=== PATIENT | male | born 1940 | race Caucasian/White ===

== ENCOUNTER 2021-12-25 11:27 | Inpatient (IN) ==
[2021-12-25] MEDS ORDERED: Morphine Sulfate ER (12 HR) 30 MG TABLET.ER PO PRN (16:28)
[2021-12-25] MEDS ORDERED: Dextrose Gel 15 GM/37.5 ML TUBE PO PRN ×2 (16:36)
[2021-12-25] MEDS ORDERED: D5% in Water 1,000 ML IVC PRN (16:36)
[2021-12-25] MEDS ORDERED: *HR* Dextrose 50 % in Water (Syg) 50 ML SYRINGE IVP PRN (16:36)
[2021-12-25] MEDS ORDERED: Ondansetron ODT 4 MG TAB.RAPDIS SL PRN (16:38)
[2021-12-25] MEDS ORDERED: DAPTOmycin 500 MG VIAL IVPB SCH (17:00)
[2021-12-25] MEDS: carvediloL 25 MG TABLET PO SCH (17:39)
[2021-12-25] MEDS: Nystatin Cream 15 GM TUBE TP SCH (21:37)
[2021-12-25] MEDS: Gabapentin 300 MG CAPSULE PO SCH (21:37)
[2021-12-25] MEDS: traZODone 50 MG TABLET PO SCH (21:37)
[2021-12-25] MEDS: Insulin LISPRO 300 UNITS/3 ML VIAL SUBQ SCH (21:38)
[2021-12-25] MEDS: DAPTOmycin 650 MG in 0.9 % Sodium Chloride 100 ML IVPB SCH (21:39)
[2021-12-26] MEDS: hydrALAZINE 25 MG TABLET PO SCH ×4 (00:05→22:27)
[2021-12-26 07:31] LABS: Basophils % 0.2 %; Calcium 8.4 mg/dL (8.6-10.3); Eosinophils % 0.6 %; Hematocrit 36.7 % (37.5-50.1); Hemoglobin 11.8 g/dL (12.9-16.9); Immature Granulocytes % 0.9 % (0-4); Lymphocytes # 0.9 K/mcL (0.6-4.6); Lymphocytes % 17.7 %; Mean Corpuscular HGB Conc 32.2 g/dL (31.6-35.5); Mean Corpuscular Hemoglobin 30.9 pg (28.0-33.3); Mean Corpuscular Volume 96.1 fL (83.0-100.0); Monocytes # 0.5 K/mcL (0.0-1.3); Monocytes % 8.5 %; Neutrophils # 3.8 K/mcL (1.6-8.9); Platelet Count 172 K/mcL (140-400); Potassium 3.9 mEq/L (3.5-5.1); Red Blood Count 3.82 M/mcL (4.19-5.50); Red Cell Distribution Width 13.3 % (11.5-14.5); Segmented Neutrophils % 72.1 %; White Blood Count 5.3 K/mcL (4.3-11.1)
[2021-12-26] MEDS ORDERED: Tiotropium 10 INH DOSE IH ONE (08:29)
[2021-12-26] MEDS: Tiotropium 10 INH DOSE IH SCH (08:40)
[2021-12-26] MEDS: Nystatin Cream 15 GM TUBE TP SCH ×2 (10:05→22:28)
[2021-12-26] MEDS: Fluticasone Propionate Nasal 50 MCG/SPRAY BOTTLE NS SCH (10:05)
[2021-12-26] MEDS: Insulin LISPRO 300 UNITS/3 ML VIAL SUBQ SCH ×4 (10:46→22:27)
[2021-12-26] MEDS: amLODIPine 5 MG TABLET PO SCH (10:49)
[2021-12-26] MEDS: lisinopriL 20 MG TABLET PO SCH (10:49)
[2021-12-26] MEDS: Cholecalciferol (D-3) 1,000 UNIT (25MCG) TABLET PO SCH (10:50)
[2021-12-26] MEDS: Loratadine 10 MG TABLET PO SCH (10:50)
[2021-12-26] MEDS: calcitrioL 0.25 MCG CAPSULE PO SCH (10:50)
[2021-12-26] MEDS: Gabapentin 300 MG CAPSULE PO SCH ×3 (10:50→22:27)
[2021-12-26] MEDS: Ertapenem 1,000 MG in 0.9 % Sodium Chloride Mini Bag 100 ML IVPB SCH (10:52)
[2021-12-26] MEDS: carvediloL 25 MG TABLET PO SCH ×2 (10:55→17:54)
[2021-12-26] MEDS: DAPTOmycin 650 MG in 0.9 % Sodium Chloride 100 ML IVPB SCH (22:26)
[2021-12-26] MEDS: traZODone 50 MG TABLET PO SCH (22:27)
[2021-12-27] MEDS: Insulin LISPRO 300 UNITS/3 ML VIAL SUBQ SCH ×4 (09:08→23:23)
[2021-12-27] MEDS: Cholecalciferol (D-3) 1,000 UNIT (25MCG) TABLET PO SCH (09:20)
[2021-12-27] MEDS: Loratadine 10 MG TABLET PO SCH (09:20)
[2021-12-27] MEDS: Ertapenem 1,000 MG in 0.9 % Sodium Chloride Mini Bag 100 ML IVPB SCH (09:20)
[2021-12-27] MEDS: carvediloL 25 MG TABLET PO SCH ×2 (09:20→16:58)
[2021-12-27] MEDS: Gabapentin 300 MG CAPSULE PO SCH ×3 (09:20→23:22)
[2021-12-27] MEDS: calcitrioL 0.25 MCG CAPSULE PO SCH (09:20)
[2021-12-27] MEDS: amLODIPine 5 MG TABLET PO SCH (09:20)
[2021-12-27] MEDS: lisinopriL 20 MG TABLET PO SCH (09:20)
[2021-12-27] MEDS: Tiotropium 10 INH DOSE IH SCH (09:49)
[2021-12-27 09:54] LABS: Adenovirus Not Detected (Not Detect); Bordetella Pertussis Not Detected (Not Detect); Chlamydophila pneumoniae Not Detected (Not Detect); Coronavirus 229E Not Detected (Not Detect); Coronavirus HKU1 Not Detected (Not Detect); Coronavirus NL63 Not Detected (Not Detect); Coronavirus OC43 Not Detected (Not Detect); Human Metapneumovirus Not Detected (Not Detect); Human Rhinovirus/Enterovirus Not Detected (Not Detect); Influenza A Subtype 2009 H1 Not Detected (Not Detect); Influenza B Not Detected (Not Detect); Mycoplasma pneumoniae Not Detected (Not Detect); Parainfluenza Virus 1 Not Detected (Not Detect); Parainfluenza Virus 2 Not Detected (Not Detect); Parainfluenza Virus 3 Not Detected (Not Detect); Parainfluenza Virus 4 Not Detected (Not Detect); Respiratory Syncytial Virus Not Detected (Not Detect)
[2021-12-27 09:56] LABS: SARS-CoV-2 DETECTED (Not Detect)
[2021-12-27 10:24] LABS: Basophils % 0.2 %; Eosinophils % 0.4 %; Hematocrit 36.2 % (37.5-50.1); Hemoglobin 11.7 g/dL (12.9-16.9); Lymphocytes % 19.2 %; Mean Corpuscular HGB Conc 32.3 g/dL (31.6-35.5); Mean Corpuscular Hemoglobin 31.2 pg (28.0-33.3); Mean Corpuscular Volume 96.5 fL (83.0-100.0); Mean Platelet Volume 9.7 fL (9.4-12.4); Monocytes # 0.5 K/mcL (0.0-1.3); Monocytes % 10.7 %; Neutrophils # 3.5 K/mcL (1.6-8.9); Platelet Count 158 K/mcL (140-400); Red Blood Count 3.75 M/mcL (4.19-5.50); Red Cell Distribution Width 13.5 % (11.5-14.5); Segmented Neutrophils % 68.5 %
[2021-12-27 10:42] LABS: Calcium 8.4 mg/dL (8.6-10.3); Potassium 4.1 mEq/L (3.5-5.1)
[2021-12-27] MEDS: hydrALAZINE 25 MG TABLET PO SCH ×3 (11:24→23:22)
[2021-12-27] MEDS: Fluticasone Propionate Nasal 50 MCG/SPRAY BOTTLE NS SCH (11:26)
[2021-12-27] MEDS: Nystatin Cream 15 GM TUBE TP SCH ×2 (11:27→23:28)
[2021-12-27] MEDS: Benzonatate 100 MG CAPSULE PO PRN (23:22)
[2021-12-27] MEDS: traZODone 50 MG TABLET PO SCH (23:22)
[2021-12-27] MEDS: DAPTOmycin 650 MG in 0.9 % Sodium Chloride 100 ML IVPB SCH (23:24)
[2021-12-28] MEDS: Loratadine 10 MG TABLET PO SCH (08:44)
[2021-12-28] MEDS: Gabapentin 300 MG CAPSULE PO SCH ×3 (08:44→20:15)
[2021-12-28] MEDS: lisinopriL 20 MG TABLET PO SCH (08:45)
[2021-12-28] MEDS: calcitrioL 0.25 MCG CAPSULE PO SCH (08:45)
[2021-12-28] MEDS: amLODIPine 5 MG TABLET PO SCH (08:45)
[2021-12-28] MEDS: carvediloL 25 MG TABLET PO SCH ×2 (08:46→17:24)
[2021-12-28] MEDS: Cholecalciferol (D-3) 1,000 UNIT (25MCG) TABLET PO SCH (08:46)
[2021-12-28] MEDS: hydrALAZINE 25 MG TABLET PO SCH ×3 (08:47→23:05)
[2021-12-28] MEDS: Acetaminophen 325 MG TABLET PO PRN ×2 (08:48→20:15)
[2021-12-28] MEDS: Ertapenem 1,000 MG in 0.9 % Sodium Chloride Mini Bag 100 ML IVPB SCH (08:48)
[2021-12-28] MEDS: Tiotropium 10 INH DOSE IH SCH (09:17)
[2021-12-28] MEDS: Insulin LISPRO 300 UNITS/3 ML VIAL SUBQ SCH ×4 (10:46→20:23)
[2021-12-28] MEDS: Furosemide 20 MG TABLET PO SCH (10:58)
[2021-12-28] MEDS: Fluticasone Propionate Nasal 50 MCG/SPRAY BOTTLE NS SCH (10:59)
[2021-12-28] MEDS: Nystatin Cream 15 GM TUBE TP SCH ×2 (15:06→20:17)
[2021-12-28] MEDS: *HR* HYDROcodone/Acet 5/325 mg TABLET PO PRN (17:30)
[2021-12-28] MEDS: Benzonatate 100 MG CAPSULE PO PRN (20:16)
[2021-12-28] MEDS: traZODone 50 MG TABLET PO SCH (20:17)
[2021-12-28] MEDS: DAPTOmycin 650 MG in 0.9 % Sodium Chloride 100 ML IVPB SCH (20:18)
[2021-12-28] MEDS: *HR* Heparin 5,000 UNIT/ML VIAL SQ SCH (23:04)
[2021-12-29] MEDS: *HR* Heparin 5,000 UNIT/ML VIAL SQ SCH ×3 (05:35→23:23)
[2021-12-29] MEDS: Insulin LISPRO 300 UNITS/3 ML VIAL SUBQ SCH ×4 (07:31→20:52)
[2021-12-29] MEDS: calcitrioL 0.25 MCG CAPSULE PO SCH (08:12)
[2021-12-29] MEDS: Gabapentin 300 MG CAPSULE PO SCH ×3 (08:12→20:51)
[2021-12-29] MEDS: Cholecalciferol (D-3) 1,000 UNIT (25MCG) TABLET PO SCH (08:13)
[2021-12-29] MEDS: Loratadine 10 MG TABLET PO SCH (08:13)
[2021-12-29] MEDS: carvediloL 25 MG TABLET PO SCH ×2 (08:13→17:00)
[2021-12-29] MEDS: lisinopriL 20 MG TABLET PO SCH (08:13)
[2021-12-29] MEDS: amLODIPine 5 MG TABLET PO SCH (08:13)
[2021-12-29] MEDS: hydrALAZINE 25 MG TABLET PO SCH ×3 (08:13→23:23)
[2021-12-29] MEDS: Nystatin Cream 15 GM TUBE TP SCH ×2 (08:14→23:24)
[2021-12-29] MEDS: Acetaminophen 325 MG TABLET PO PRN ×2 (08:14→20:50)
[2021-12-29] MEDS: Fluticasone Propionate Nasal 50 MCG/SPRAY BOTTLE NS SCH (08:15)
[2021-12-29] MEDS: Ertapenem 1,000 MG in 0.9 % Sodium Chloride Mini Bag 100 ML IVPB SCH (08:15)
[2021-12-29] MEDS: Tiotropium 10 INH DOSE IH SCH (09:30)
[2021-12-29 12:14] LABS: ABG Base Excess -2 mEq/L (-2 to 3); ABG HCO3 23 mEq/L (21-27); ABG Oxygen Saturation 81 % (95-98); ABG PCO2 39 mmHg (35-45); ABG PH 7.38 pH Units (7.32-7.45); ABG PO2 46 mmHg (85-104); ABG TCO2 24 mEq/L (20-26)
[2021-12-29] MEDS: Gentamicin Oint 15 GM TUBE TP SCH (16:46)
[2021-12-29] MEDS: DAPTOmycin 650 MG in 0.9 % Sodium Chloride 100 ML IVPB SCH (20:48)
[2021-12-29] MEDS: Benzonatate 100 MG CAPSULE PO PRN (20:52)
[2021-12-29] MEDS: traZODone 50 MG TABLET PO SCH (20:52)
[2021-12-30] MEDS: *HR* Heparin 5,000 UNIT/ML VIAL SQ SCH ×3 (05:49→22:29)
[2021-12-30] MEDS: Acetaminophen 325 MG TABLET PO PRN ×2 (05:50→20:54)
[2021-12-30] MEDS: Insulin LISPRO 300 UNITS/3 ML VIAL SUBQ SCH ×4 (07:26→20:55)
[2021-12-30] MEDS: hydrALAZINE 25 MG TABLET PO SCH ×3 (07:41→22:28)
[2021-12-30] MEDS: carvediloL 25 MG TABLET PO SCH ×2 (07:41→16:01)
[2021-12-30] MEDS: Tiotropium 10 INH DOSE IH SCH (09:10)
[2021-12-30] MEDS: Cholecalciferol (D-3) 1,000 UNIT (25MCG) TABLET PO SCH (09:12)
[2021-12-30] MEDS: amLODIPine 5 MG TABLET PO SCH (09:13)
[2021-12-30] MEDS: Gabapentin 300 MG CAPSULE PO SCH ×3 (09:13→20:53)
[2021-12-30] MEDS: calcitrioL 0.25 MCG CAPSULE PO SCH (09:13)
[2021-12-30] MEDS: Loratadine 10 MG TABLET PO SCH (09:13)
[2021-12-30] MEDS: Fluticasone Propionate Nasal 50 MCG/SPRAY BOTTLE NS SCH (09:13)
[2021-12-30] MEDS: Nystatin Cream 15 GM TUBE TP SCH ×2 (09:14→20:55)
[2021-12-30] MEDS: Ertapenem 1,000 MG in 0.9 % Sodium Chloride Mini Bag 100 ML IVPB SCH (09:14)
[2021-12-30] MEDS: Gentamicin Oint 15 GM TUBE TP SCH (12:12)
[2021-12-30] MEDS: Furosemide 20 MG TABLET PO SCH (12:13)
[2021-12-30] MEDS: lisinopriL 20 MG TABLET PO SCH (12:13)
[2021-12-30] MEDS: dexAMETHasone 4 MG TABLET PO SCH (12:13)
[2021-12-30] MEDS ORDERED: Lactobacillus 1 EACH CAP.SPRINK PO SCH (14:15)
[2021-12-30] MEDS: *HR* HYDROcodone/Acet 5/325 mg TABLET PO PRN (16:02)
[2021-12-30] MEDS: Lactobacillus 1 EACH CAP.SPRINK PO SCH ×2 (16:48→20:54)
[2021-12-30] MEDS: DAPTOmycin 650 MG in 0.9 % Sodium Chloride 100 ML IVPB SCH (20:51)
[2021-12-30] MEDS: Benzonatate 100 MG CAPSULE PO PRN (20:52)
[2021-12-30] MEDS: traZODone 50 MG TABLET PO SCH (20:55)
[2021-12-31] MEDS: *HR* Heparin 5,000 UNIT/ML VIAL SQ SCH ×3 (06:12→21:16)
[2021-12-31] MEDS: Ertapenem 1,000 MG in 0.9 % Sodium Chloride Mini Bag 100 ML IVPB SCH (08:25)
[2021-12-31] MEDS: carvediloL 25 MG TABLET PO SCH ×2 (08:26→17:25)
[2021-12-31] MEDS: Lactobacillus 1 EACH CAP.SPRINK PO SCH ×2 (08:26→21:16)
[2021-12-31] MEDS: dexAMETHasone 4 MG TABLET PO SCH (08:26)
[2021-12-31] MEDS: Loratadine 10 MG TABLET PO SCH (08:26)
[2021-12-31] MEDS: hydrALAZINE 25 MG TABLET PO SCH ×2 (08:26→17:25)
[2021-12-31] MEDS: Gabapentin 300 MG CAPSULE PO SCH ×3 (08:29→21:16)
[2021-12-31] MEDS: Nystatin Cream 15 GM TUBE TP SCH ×2 (08:29→21:16)
[2021-12-31] MEDS: Fluticasone Propionate Nasal 50 MCG/SPRAY BOTTLE NS SCH (08:29)
[2021-12-31] MEDS: calcitrioL 0.25 MCG CAPSULE PO SCH (08:29)
[2021-12-31] MEDS: Cholecalciferol (D-3) 1,000 UNIT (25MCG) TABLET PO SCH (08:29)
[2021-12-31] MEDS: lisinopriL 20 MG TABLET PO SCH (08:29)
[2021-12-31] MEDS: amLODIPine 5 MG TABLET PO SCH (08:29)
[2021-12-31] MEDS: Insulin LISPRO 300 UNITS/3 ML VIAL SUBQ SCH ×4 (08:37→22:07)
[2021-12-31] MEDS: Tiotropium 10 INH DOSE IH SCH (11:28)
[2021-12-31] MEDS: Gentamicin Oint 15 GM TUBE TP SCH (12:18)
[2021-12-31] MEDS: *HR* HYDROcodone/Acet 5/325 mg TABLET PO PRN (18:44)
[2021-12-31] MEDS: DAPTOmycin 650 MG in 0.9 % Sodium Chloride 100 ML IVPB SCH (21:15)
[2021-12-31] MEDS: traZODone 50 MG TABLET PO SCH (21:16)
[2022-01-01] MEDS: hydrALAZINE 25 MG TABLET PO SCH ×4 (00:08→23:54)
[2022-01-01] MEDS: *HR* Heparin 5,000 UNIT/ML VIAL SQ SCH ×3 (05:46→21:00)
[2022-01-01] MEDS: *HR* HYDROcodone/Acet 5/325 mg TABLET PO PRN ×3 (09:51→19:11)
[2022-01-01] MEDS: amLODIPine 5 MG TABLET PO SCH (09:51)
[2022-01-01] MEDS: Furosemide 20 MG TABLET PO SCH (09:52)
[2022-01-01] MEDS: Gabapentin 300 MG CAPSULE PO SCH ×3 (09:52→19:58)
[2022-01-01] MEDS: lisinopriL 20 MG TABLET PO SCH (09:52)
[2022-01-01] MEDS: Loratadine 10 MG TABLET PO SCH (09:52)
[2022-01-01] MEDS: Lactobacillus 1 EACH CAP.SPRINK PO SCH ×2 (09:52→19:58)
[2022-01-01] MEDS: Cholecalciferol (D-3) 1,000 UNIT (25MCG) TABLET PO SCH (09:52)
[2022-01-01] MEDS: dexAMETHasone 4 MG TABLET PO SCH (09:52)
[2022-01-01] MEDS: calcitrioL 0.25 MCG CAPSULE PO SCH (09:52)
[2022-01-01] MEDS: Gentamicin Oint 15 GM TUBE TP SCH (09:53)
[2022-01-01] MEDS: Fluticasone Propionate Nasal 50 MCG/SPRAY BOTTLE NS SCH (09:53)
[2022-01-01] MEDS: Ertapenem 1,000 MG in 0.9 % Sodium Chloride Mini Bag 100 ML IVPB SCH (09:53)
[2022-01-01] MEDS: Insulin LISPRO 300 UNITS/3 ML VIAL SUBQ SCH ×3 (09:53→19:57)
[2022-01-01] MEDS: Nystatin Cream 15 GM TUBE TP SCH ×2 (09:53→19:58)
[2022-01-01] MEDS: carvediloL 25 MG TABLET PO SCH ×2 (09:53→19:11)
[2022-01-01] MEDS: Tiotropium 10 INH DOSE IH SCH (10:39)
[2022-01-01] MEDS: DAPTOmycin 650 MG in 0.9 % Sodium Chloride 100 ML IVPB SCH (19:57)
[2022-01-01] MEDS: traZODone 50 MG TABLET PO SCH (19:58)
[2022-01-02] MEDS: *HR* Heparin 5,000 UNIT/ML VIAL SQ SCH ×3 (05:40→22:31)
[2022-01-02 08:00] LABS: Basophils % 0.4 %; Eosinophils % 0.4 %; Hematocrit 32.3 % (37.5-50.1); Hemoglobin 10.8 g/dL (12.9-16.9); Immature Granulocytes % 0.6 % (0-4); Lymphocytes # 1.4 K/mcL (0.6-4.6); Lymphocytes % 25.3 %; Mean Corpuscular HGB Conc 33.4 g/dL (31.6-35.5); Mean Corpuscular Hemoglobin 30.4 pg (28.0-33.3); Mean Platelet Volume 9.6 fL (9.4-12.4); Monocytes # 0.4 K/mcL (0.0-1.3); Monocytes % 8.2 %; Neutrophils # 3.5 K/mcL (1.6-8.9); Platelet Count 238 K/mcL (140-400); Red Blood Count 3.55 M/mcL (4.19-5.50); Red Cell Distribution Width 12.5 % (11.5-14.5); Segmented Neutrophils % 65.1 %; White Blood Count 5.4 K/mcL (4.3-11.1)
[2022-01-02 08:12] LABS: Calcium 8.3 mg/dL (8.6-10.3)
[2022-01-02] MEDS: Lactobacillus 1 EACH CAP.SPRINK PO SCH ×2 (08:55→21:04)
[2022-01-02] MEDS: *HR* HYDROcodone/Acet 5/325 mg TABLET PO PRN ×2 (08:56→21:04)
[2022-01-02] MEDS: calcitrioL 0.25 MCG CAPSULE PO SCH (08:56)
[2022-01-02] MEDS: amLODIPine 5 MG TABLET PO SCH (08:56)
[2022-01-02] MEDS: Loratadine 10 MG TABLET PO SCH (08:56)
[2022-01-02] MEDS: dexAMETHasone 4 MG TABLET PO SCH (08:56)
[2022-01-02] MEDS: carvediloL 25 MG TABLET PO SCH ×2 (08:56→16:23)
[2022-01-02] MEDS: Gabapentin 300 MG CAPSULE PO SCH ×3 (08:56→21:04)
[2022-01-02] MEDS: lisinopriL 20 MG TABLET PO SCH (08:56)
[2022-01-02] MEDS: Cholecalciferol (D-3) 1,000 UNIT (25MCG) TABLET PO SCH (08:57)
[2022-01-02] MEDS: Fluticasone Propionate Nasal 50 MCG/SPRAY BOTTLE NS SCH (08:57)
[2022-01-02] MEDS: hydrALAZINE 25 MG TABLET PO SCH ×2 (08:57→16:23)
[2022-01-02] MEDS: Gentamicin Oint 15 GM TUBE TP SCH (08:58)
[2022-01-02] MEDS: Ertapenem 1,000 MG in 0.9 % Sodium Chloride Mini Bag 100 ML IVPB SCH (08:58)
[2022-01-02] MEDS: Nystatin Cream 15 GM TUBE TP SCH ×2 (08:59→21:16)
[2022-01-02] MEDS: Tiotropium 10 INH DOSE IH SCH (10:42)
[2022-01-02] MEDS: Insulin LISPRO 300 UNITS/3 ML VIAL SUBQ SCH ×3 (11:45→21:05)
[2022-01-02] MEDS: DAPTOmycin 650 MG in 0.9 % Sodium Chloride 100 ML IVPB SCH (21:03)
[2022-01-02] MEDS: traZODone 50 MG TABLET PO SCH (21:04)
[2022-01-03] MEDS: hydrALAZINE 25 MG TABLET PO SCH ×3 (00:40→14:52)
[2022-01-03] MEDS: *HR* Heparin 5,000 UNIT/ML VIAL SQ SCH ×3 (04:26→21:35)
[2022-01-03] MEDS: Loratadine 10 MG TABLET PO SCH (08:58)
[2022-01-03] MEDS: Cholecalciferol (D-3) 1,000 UNIT (25MCG) TABLET PO SCH (08:59)
[2022-01-03] MEDS: amLODIPine 5 MG TABLET PO SCH (08:59)
[2022-01-03] MEDS: calcitrioL 0.25 MCG CAPSULE PO SCH (08:59)
[2022-01-03] MEDS: *HR* HYDROcodone/Acet 5/325 mg TABLET PO PRN ×2 (08:59→14:52)
[2022-01-03] MEDS: Gabapentin 300 MG CAPSULE PO SCH ×3 (08:59→21:35)
[2022-01-03] MEDS: Lactobacillus 1 EACH CAP.SPRINK PO SCH ×2 (08:59→21:35)
[2022-01-03] MEDS: dexAMETHasone 4 MG TABLET PO SCH (08:59)
[2022-01-03] MEDS: carvediloL 25 MG TABLET PO SCH ×2 (08:59→16:55)
[2022-01-03] MEDS: lisinopriL 20 MG TABLET PO SCH (08:59)
[2022-01-03] MEDS: Nystatin Cream 15 GM TUBE TP SCH (09:00)
[2022-01-03] MEDS: Ertapenem 1,000 MG in 0.9 % Sodium Chloride Mini Bag 100 ML IVPB SCH (09:00)
[2022-01-03] MEDS: Fluticasone Propionate Nasal 50 MCG/SPRAY BOTTLE NS SCH (09:01)
[2022-01-03] MEDS: Insulin LISPRO 300 UNITS/3 ML VIAL SUBQ SCH ×4 (09:01→21:38)
[2022-01-03] MEDS: Gentamicin Oint 15 GM TUBE TP SCH (09:01)
[2022-01-03] MEDS: Tiotropium 10 INH DOSE IH SCH (09:35)
[2022-01-03] MEDS: Insulin DETEMIR 100 UNIT/ML X5UNITS SUBQ SCH ×2 (11:12→21:38)
[2022-01-03] MEDS: traZODone 50 MG TABLET PO SCH (21:35)
[2022-01-03] MEDS: DAPTOmycin 650 MG in 0.9 % Sodium Chloride 100 ML IVPB SCH (21:36)
[2022-01-04] MEDS: hydrALAZINE 25 MG TABLET PO SCH ×3 (00:07→16:24)
[2022-01-04 06:50] LABS: Hemoglobin 12.2 g/dL (12.9-16.9); Mean Corpuscular HGB Conc 33.9 g/dL (31.6-35.5); Mean Corpuscular Volume 91.6 fL (83.0-100.0); Mean Platelet Volume 9.7 fL (9.4-12.4); Platelet Count 290 K/mcL (140-400); Red Blood Count 3.93 M/mcL (4.19-5.50); Red Cell Distribution Width 12.5 % (11.5-14.5); White Blood Count 6.2 K/mcL (4.3-11.1)
[2022-01-04] MEDS: Tiotropium 10 INH DOSE IH SCH (09:21)
[2022-01-04 09:35] LABS: C-Reactive Protein 11 mg/L (Less than 10)
[2022-01-04 10:02] LABS: Blood Urea Nitrogen 42 mg/dL (8-23); Creatine Kinase 51 Units/L (30-223)
[2022-01-04] MEDS: Ertapenem 1,000 MG in 0.9 % Sodium Chloride Mini Bag 100 ML IVPB SCH (10:11)
[2022-01-04] MEDS: Nystatin Cream 15 GM TUBE TP SCH ×3 (10:11→23:12)
[2022-01-04] MEDS: Cholecalciferol (D-3) 1,000 UNIT (25MCG) TABLET PO SCH (10:12)
[2022-01-04] MEDS: Insulin DETEMIR 100 UNIT/ML X5UNITS SUBQ SCH ×2 (10:12→23:07)
[2022-01-04] MEDS: Gabapentin 300 MG CAPSULE PO SCH ×3 (10:12→22:41)
[2022-01-04] MEDS: *HR* Heparin 5,000 UNIT/ML VIAL SQ SCH ×3 (10:13→22:41)
[2022-01-04] MEDS: amLODIPine 5 MG TABLET PO SCH (10:13)
[2022-01-04] MEDS: calcitrioL 0.25 MCG CAPSULE PO SCH (10:13)
[2022-01-04] MEDS: *HR* HYDROcodone/Acet 5/325 mg TABLET PO PRN (10:13)
[2022-01-04] MEDS: carvediloL 25 MG TABLET PO SCH ×2 (10:13→16:24)
[2022-01-04] MEDS: Gentamicin Oint 15 GM TUBE TP SCH (10:14)
[2022-01-04] MEDS: Insulin LISPRO 300 UNITS/3 ML VIAL SUBQ SCH ×4 (10:14→22:42)
[2022-01-04] MEDS: Lactobacillus 1 EACH CAP.SPRINK PO SCH ×2 (10:14→22:41)
[2022-01-04] MEDS: lisinopriL 20 MG TABLET PO SCH (10:14)
[2022-01-04] MEDS: Fluticasone Propionate Nasal 50 MCG/SPRAY BOTTLE NS SCH (10:14)
[2022-01-04] MEDS: Loratadine 10 MG TABLET PO SCH (10:14)
[2022-01-04] MEDS: Furosemide 20 MG TABLET PO SCH (10:38)
[2022-01-04] MEDS: traZODone 50 MG TABLET PO SCH (22:41)
[2022-01-04] MEDS: DAPTOmycin 650 MG in 0.9 % Sodium Chloride 100 ML IVPB SCH (23:07)
[2022-01-05] MEDS: hydrALAZINE 25 MG TABLET PO SCH ×3 (00:50→17:23)
[2022-01-05] MEDS: *HR* Heparin 5,000 UNIT/ML VIAL SQ SCH ×3 (06:53→21:24)
[2022-01-05] MEDS: Gentamicin Oint 15 GM TUBE TP SCH (08:09)
[2022-01-05] MEDS: Ertapenem 1,000 MG in 0.9 % Sodium Chloride Mini Bag 100 ML IVPB SCH (08:11)
[2022-01-05] MEDS: *HR* HYDROcodone/Acet 5/325 mg TABLET PO PRN ×2 (08:12→20:46)
[2022-01-05] MEDS: carvediloL 25 MG TABLET PO SCH ×2 (08:12→17:23)
[2022-01-05] MEDS: calcitrioL 0.25 MCG CAPSULE PO SCH (08:13)
[2022-01-05] MEDS: lisinopriL 20 MG TABLET PO SCH (08:13)
[2022-01-05] MEDS: Lactobacillus 1 EACH CAP.SPRINK PO SCH ×2 (08:13→20:47)
[2022-01-05] MEDS: amLODIPine 5 MG TABLET PO SCH (08:13)
[2022-01-05] MEDS: Cholecalciferol (D-3) 1,000 UNIT (25MCG) TABLET PO SCH (08:13)
[2022-01-05] MEDS: Nystatin Cream 15 GM TUBE TP SCH ×2 (08:13→20:47)
[2022-01-05] MEDS: Loratadine 10 MG TABLET PO SCH (08:13)
[2022-01-05] MEDS: Gabapentin 300 MG CAPSULE PO SCH ×3 (08:13→20:46)
[2022-01-05] MEDS: Insulin LISPRO 300 UNITS/3 ML VIAL SUBQ SCH ×4 (08:14→20:53)
[2022-01-05] MEDS: Fluticasone Propionate Nasal 50 MCG/SPRAY BOTTLE NS SCH (08:14)
[2022-01-05] MEDS: Insulin DETEMIR 100 UNIT/ML X5UNITS SUBQ SCH ×2 (08:14→20:48)
[2022-01-05] MEDS: Tiotropium 10 INH DOSE IH SCH (10:03)
[2022-01-05 14:47] LABS: Calcium 8.2 mg/dL (8.6-10.3); Potassium 4.1 mEq/L (3.5-5.1)
[2022-01-05] MEDS: traZODone 50 MG TABLET PO SCH (20:47)
[2022-01-05] MEDS: DAPTOmycin 650 MG in 0.9 % Sodium Chloride 100 ML IVPB SCH (20:50)
[2022-01-06] MEDS: hydrALAZINE 25 MG TABLET PO SCH ×3 (00:36→17:03)
[2022-01-06] MEDS: *HR* Heparin 5,000 UNIT/ML VIAL SQ SCH ×3 (05:27→21:06)
[2022-01-06] MEDS: Tiotropium 10 INH DOSE IH SCH (07:39)
[2022-01-06] MEDS: Insulin LISPRO 300 UNITS/3 ML VIAL SUBQ SCH ×4 (08:23→21:05)
[2022-01-06] MEDS: Ertapenem 1,000 MG in 0.9 % Sodium Chloride Mini Bag 100 ML IVPB SCH (10:31)
[2022-01-06] MEDS: Insulin DETEMIR 100 UNIT/ML X5UNITS SUBQ SCH ×2 (10:37→22:10)
[2022-01-06] MEDS: Cholecalciferol (D-3) 1,000 UNIT (25MCG) TABLET PO SCH (10:37)
[2022-01-06] MEDS: Gabapentin 300 MG CAPSULE PO SCH ×3 (10:37→21:08)
[2022-01-06] MEDS: calcitrioL 0.25 MCG CAPSULE PO SCH (10:38)
[2022-01-06] MEDS: amLODIPine 5 MG TABLET PO SCH (10:38)
[2022-01-06] MEDS: Lactobacillus 1 EACH CAP.SPRINK PO SCH ×2 (10:38→21:08)
[2022-01-06] MEDS: Loratadine 10 MG TABLET PO SCH (10:38)
[2022-01-06] MEDS: Gentamicin Oint 15 GM TUBE TP SCH (10:39)
[2022-01-06] MEDS: Fluticasone Propionate Nasal 50 MCG/SPRAY BOTTLE NS SCH (10:39)
[2022-01-06] MEDS: Nystatin Cream 15 GM TUBE TP SCH ×2 (10:39→21:08)
[2022-01-06] MEDS: carvediloL 25 MG TABLET PO SCH ×2 (10:42→17:03)
[2022-01-06] MEDS: Ringers Solution, Lactated 1,000 ML IVC SCH (17:02)
[2022-01-06] MEDS: DAPTOmycin 650 MG in 0.9 % Sodium Chloride 100 ML IVPB SCH (21:04)
[2022-01-06] MEDS: traZODone 50 MG TABLET PO SCH (21:08)
[2022-01-07] MEDS: hydrALAZINE 25 MG TABLET PO SCH ×4 (00:22→23:40)
[2022-01-07] MEDS: *HR* Heparin 5,000 UNIT/ML VIAL SQ SCH ×3 (05:14→23:34)
[2022-01-07] MEDS: Ringers Solution, Lactated 1,000 ML IVC SCH (05:43)
[2022-01-07] MEDS: Insulin LISPRO 300 UNITS/3 ML VIAL SUBQ SCH ×4 (07:31→21:14)
[2022-01-07 07:37] LABS: Hematocrit 32.8 % (37.5-50.1); Hemoglobin 10.9 g/dL (12.9-16.9); Mean Corpuscular HGB Conc 33.2 g/dL (31.6-35.5); Mean Corpuscular Hemoglobin 31.1 pg (28.0-33.3); Mean Corpuscular Volume 93.4 fL (83.0-100.0); Mean Platelet Volume 9.6 fL (9.4-12.4); Platelet Count 289 K/mcL (140-400); Red Blood Count 3.51 M/mcL (4.19-5.50); Red Cell Distribution Width 12.9 % (11.5-14.5); White Blood Count 6.8 K/mcL (4.3-11.1)
[2022-01-07 08:05] LABS: Calcium 8.1 mg/dL (8.6-10.3); Potassium 4.1 mEq/L (3.5-5.1)
[2022-01-07] MEDS: carvediloL 25 MG TABLET PO SCH ×2 (08:35→16:01)
[2022-01-07] MEDS: Gabapentin 300 MG CAPSULE PO SCH ×3 (08:35→21:06)
[2022-01-07] MEDS: Lactobacillus 1 EACH CAP.SPRINK PO SCH ×2 (08:35→21:05)
[2022-01-07] MEDS: calcitrioL 0.25 MCG CAPSULE PO SCH (08:36)
[2022-01-07] MEDS: amLODIPine 5 MG TABLET PO SCH (08:36)
[2022-01-07] MEDS: Loratadine 10 MG TABLET PO SCH (08:36)
[2022-01-07] MEDS: Nystatin Cream 15 GM TUBE TP SCH ×2 (08:36→21:08)
[2022-01-07] MEDS: Cholecalciferol (D-3) 1,000 UNIT (25MCG) TABLET PO SCH (08:36)
[2022-01-07] MEDS: Ertapenem 1,000 MG in 0.9 % Sodium Chloride Mini Bag 100 ML IVPB SCH ×2 (08:37→09:10)
[2022-01-07] MEDS: *HR* HYDROcodone/Acet 5/325 mg TABLET PO PRN (08:37)
[2022-01-07] MEDS: Gentamicin Oint 15 GM TUBE TP SCH (08:38)
[2022-01-07] MEDS: Fluticasone Propionate Nasal 50 MCG/SPRAY BOTTLE NS SCH (08:38)
[2022-01-07] MEDS: Tiotropium 10 INH DOSE IH SCH (08:54)
[2022-01-07] MEDS: Insulin DETEMIR 100 UNIT/ML X5UNITS SUBQ SCH ×2 (09:11→21:14)
[2022-01-07 10:00] LABS: Adenovirus F 40/41 PCR Not detected (Not detect); Astrovirus PCR Not detected (Not detect); C.difficile Toxin A/B Gene PCR Not detected (Not detect); Campylobacter by PCR Not detected (Not detect); Cryptosporidium by PCR Not detected (Not detect); Cyclospora cayetanensis PCR Not detected (Not detect); E. coli O157 by PCR Not detected (Not detect); Entamoeba histolytica PCR Not detected (Not detect); Enteroaggregative E.coli(EAEC) Not detected (Not detect); Enteropathogenic E.coli(EPEC) Not detected (Not detect); Enterotoxigenic E.coli (ETEC) Not detected (Not detect); Giardia lamblia PCR Not detected (Not detect); Norovirus GI/GII PCR Not detected (Not detect); Plesiomonas shigelloides PCR Not detected (Not detect); Rotavirus A PCR Not detected (Not detect); Salmonella PCR Not detected (Not detect); Sapovirus PCR Not detected (Not detect); Shig/EnteroinvasiveE coli EIEC Not detected (Not detect); Shigalike tox-prod E coli STEC Not detected (Not detect); Vibrio PCR Not detected (Not detect); Vibrio cholerae PCR Not detected (Not detect); Yersinia enterocolitica PCR Not detected (Not detect)
[2022-01-07] MEDS: traZODone 50 MG TABLET PO SCH (21:06)
[2022-01-07] MEDS: DAPTOmycin 650 MG in 0.9 % Sodium Chloride 100 ML IVPB SCH (21:07)
[2022-01-08] MEDS: *HR* Heparin 5,000 UNIT/ML VIAL SQ SCH ×3 (06:54→22:40)
[2022-01-08] MEDS: Insulin LISPRO 300 UNITS/3 ML VIAL SUBQ SCH ×4 (07:47→22:30)
[2022-01-08] MEDS: Loratadine 10 MG TABLET PO SCH (08:47)
[2022-01-08] MEDS: amLODIPine 5 MG TABLET PO SCH (08:47)
[2022-01-08] MEDS: calcitrioL 0.25 MCG CAPSULE PO SCH (08:47)
[2022-01-08] MEDS: *HR* HYDROcodone/Acet 5/325 mg TABLET PO PRN (08:47)
[2022-01-08] MEDS: Gabapentin 300 MG CAPSULE PO SCH ×3 (08:47→22:27)
[2022-01-08] MEDS: Lactobacillus 1 EACH CAP.SPRINK PO SCH ×2 (08:48→22:27)
[2022-01-08] MEDS: Fluticasone Propionate Nasal 50 MCG/SPRAY BOTTLE NS SCH (08:48)
[2022-01-08] MEDS: carvediloL 25 MG TABLET PO SCH ×2 (08:48→16:29)
[2022-01-08] MEDS: hydrALAZINE 25 MG TABLET PO SCH ×2 (08:48→16:28)
[2022-01-08] MEDS: Cholecalciferol (D-3) 1,000 UNIT (25MCG) TABLET PO SCH (08:48)
[2022-01-08] MEDS: Nystatin Cream 15 GM TUBE TP SCH ×2 (08:48→22:35)
[2022-01-08] MEDS: Gentamicin Oint 15 GM TUBE TP SCH (08:48)
[2022-01-08] MEDS: Ertapenem 1,000 MG in 0.9 % Sodium Chloride Mini Bag 100 ML IVPB SCH (08:49)
[2022-01-08] MEDS: Tiotropium 10 INH DOSE IH SCH (08:52)
[2022-01-08] MEDS: Insulin DETEMIR 100 UNIT/ML X5UNITS SUBQ SCH ×2 (09:20→22:28)
[2022-01-08] MEDS: traZODone 50 MG TABLET PO SCH (22:27)
[2022-01-08] MEDS: DAPTOmycin 650 MG in 0.9 % Sodium Chloride 100 ML IVPB SCH (22:28)
[2022-01-09] MEDS: hydrALAZINE 25 MG TABLET PO SCH ×3 (00:02→16:56)
[2022-01-09] MEDS: *HR* HYDROcodone/Acet 5/325 mg TABLET PO PRN (00:02)
[2022-01-09] MEDS: *HR* Heparin 5,000 UNIT/ML VIAL SQ SCH ×3 (06:44→20:30)
[2022-01-09] MEDS: Tiotropium 10 INH DOSE IH SCH (07:44)
[2022-01-09] MEDS: Insulin LISPRO 300 UNITS/3 ML VIAL SUBQ SCH ×4 (10:27→20:30)
[2022-01-09] MEDS: Fluticasone Propionate Nasal 50 MCG/SPRAY BOTTLE NS SCH (11:20)
[2022-01-09] MEDS: Ertapenem 1,000 MG in 0.9 % Sodium Chloride Mini Bag 100 ML IVPB SCH (11:20)
[2022-01-09] MEDS: Insulin DETEMIR 100 UNIT/ML X5UNITS SUBQ SCH ×2 (11:21→20:30)
[2022-01-09] MEDS: amLODIPine 5 MG TABLET PO SCH (11:22)
[2022-01-09] MEDS: Loratadine 10 MG TABLET PO SCH (11:22)
[2022-01-09] MEDS: Cholecalciferol (D-3) 1,000 UNIT (25MCG) TABLET PO SCH (11:22)
[2022-01-09] MEDS: calcitrioL 0.25 MCG CAPSULE PO SCH (11:22)
[2022-01-09] MEDS: Lactobacillus 1 EACH CAP.SPRINK PO SCH ×2 (11:22→20:29)
[2022-01-09] MEDS: carvediloL 25 MG TABLET PO SCH ×2 (11:22→16:56)
[2022-01-09] MEDS: Gabapentin 300 MG CAPSULE PO SCH ×3 (11:22→20:29)
[2022-01-09] MEDS: Nystatin Cream 15 GM TUBE TP SCH ×2 (11:23→20:30)
[2022-01-09] MEDS: Gentamicin Oint 15 GM TUBE TP SCH (11:49)
[2022-01-09] MEDS: DAPTOmycin 650 MG in 0.9 % Sodium Chloride 100 ML IVPB SCH (20:28)
[2022-01-09] MEDS: traZODone 50 MG TABLET PO SCH (20:30)
[2022-01-10] MEDS: hydrALAZINE 25 MG TABLET PO SCH ×3 (00:07→18:02)
[2022-01-10] MEDS: *HR* Heparin 5,000 UNIT/ML VIAL SQ SCH ×3 (06:07→20:18)
[2022-01-10] MEDS: Tiotropium 10 INH DOSE IH SCH (07:52)
[2022-01-10] MEDS: amLODIPine 5 MG TABLET PO SCH (08:37)
[2022-01-10] MEDS: Fluticasone Propionate Nasal 50 MCG/SPRAY BOTTLE NS SCH (08:37)
[2022-01-10] MEDS: Loratadine 10 MG TABLET PO SCH (08:38)
[2022-01-10] MEDS: calcitrioL 0.25 MCG CAPSULE PO SCH (08:38)
[2022-01-10] MEDS: carvediloL 25 MG TABLET PO SCH ×2 (08:38→18:02)
[2022-01-10] MEDS: Lactobacillus 1 EACH CAP.SPRINK PO SCH ×2 (08:38→20:21)
[2022-01-10] MEDS: Gabapentin 300 MG CAPSULE PO SCH ×3 (08:38→20:21)
[2022-01-10] MEDS: Cholecalciferol (D-3) 1,000 UNIT (25MCG) TABLET PO SCH (08:38)
[2022-01-10] MEDS: Ertapenem 1,000 MG in 0.9 % Sodium Chloride Mini Bag 100 ML IVPB SCH (08:38)
[2022-01-10] MEDS: Insulin DETEMIR 100 UNIT/ML X5UNITS SUBQ SCH ×2 (08:39→20:18)
[2022-01-10] MEDS: Insulin LISPRO 300 UNITS/3 ML VIAL SUBQ SCH ×4 (08:39→20:19)
[2022-01-10] MEDS: Nystatin Cream 15 GM TUBE TP SCH ×2 (08:40→20:23)
[2022-01-10] MEDS: Gentamicin Oint 15 GM TUBE TP SCH (08:40)
[2022-01-10] MEDS: *HR* HYDROcodone/Acet 5/325 mg TABLET PO PRN (11:48)
[2022-01-10] MEDS: lisinopriL 20 MG TABLET PO SCH (20:08)
[2022-01-10] MEDS: traZODone 50 MG TABLET PO SCH (20:21)
[2022-01-10] MEDS: DAPTOmycin 650 MG in 0.9 % Sodium Chloride 100 ML IVPB SCH (20:22)
[2022-01-11] MEDS: hydrALAZINE 25 MG TABLET PO SCH ×4 (01:32→23:02)
[2022-01-11] MEDS: *HR* Heparin 5,000 UNIT/ML VIAL SQ SCH ×3 (06:37→20:58)
[2022-01-11 08:05] LABS: BUN/Creatinine Ratio 14 (6-26); Blood Urea Nitrogen 29 mg/dL (8-23); Creatine Kinase 54 Units/L (30-223); Hematocrit 32.5 % (37.5-50.1); Hemoglobin 10.6 g/dL (12.9-16.9); Mean Corpuscular HGB Conc 32.6 g/dL (31.6-35.5); Mean Corpuscular Hemoglobin 30.9 pg (28.0-33.3); Mean Corpuscular Volume 94.8 fL (83.0-100.0); Mean Platelet Volume 9.9 fL (9.4-12.4); Platelet Count 266 K/mcL (140-400); Red Blood Count 3.43 M/mcL (4.19-5.50); Red Cell Distribution Width 13.4 % (11.5-14.5); White Blood Count 7.5 K/mcL (4.3-11.1)
[2022-01-11] MEDS: Tiotropium 10 INH DOSE IH SCH (08:12)
[2022-01-11] MEDS ORDERED: Ringers Solution, Lactated 1,000 ML IVC SCH (10:15)
[2022-01-11] MEDS: Insulin LISPRO 300 UNITS/3 ML VIAL SUBQ SCH ×4 (10:21→20:56)
[2022-01-11] MEDS: Gabapentin 300 MG CAPSULE PO SCH ×3 (10:22→20:52)
[2022-01-11] MEDS: lisinopriL 20 MG TABLET PO SCH (10:22)
[2022-01-11] MEDS: Lactobacillus 1 EACH CAP.SPRINK PO SCH ×2 (10:22→20:53)
[2022-01-11] MEDS: Cholecalciferol (D-3) 1,000 UNIT (25MCG) TABLET PO SCH (10:22)
[2022-01-11] MEDS: Loratadine 10 MG TABLET PO SCH (10:22)
[2022-01-11] MEDS: amLODIPine 5 MG TABLET PO SCH (10:22)
[2022-01-11] MEDS: carvediloL 25 MG TABLET PO SCH ×2 (10:23→17:23)
[2022-01-11] MEDS: calcitrioL 0.25 MCG CAPSULE PO SCH ×2 (10:25→10:27)
[2022-01-11] MEDS: Fluticasone Propionate Nasal 50 MCG/SPRAY BOTTLE NS SCH (10:27)
[2022-01-11] MEDS: Nystatin Cream 15 GM TUBE TP SCH ×2 (10:27→21:01)
[2022-01-11] MEDS: Ertapenem 1,000 MG in 0.9 % Sodium Chloride Mini Bag 100 ML IVPB SCH (10:28)
[2022-01-11] MEDS: Insulin DETEMIR 100 UNIT/ML X5UNITS SUBQ SCH ×2 (10:30→20:55)
[2022-01-11] MEDS: Gentamicin Oint 15 GM TUBE TP SCH (10:36)
[2022-01-11] MEDS: Furosemide 20 MG TABLET PO SCH (10:36)
[2022-01-11 11:29] LABS: C-Reactive Protein 44 mg/L (Less than 10)
[2022-01-11] MEDS: DAPTOmycin 650 MG in 0.9 % Sodium Chloride 100 ML IVPB SCH (20:45)
[2022-01-11] MEDS: *HR* HYDROcodone/Acet 5/325 mg TABLET PO PRN (20:53)
[2022-01-11] MEDS: traZODone 50 MG TABLET PO SCH (20:54)
[2022-01-12] MEDS: *HR* Heparin 5,000 UNIT/ML VIAL SQ SCH ×3 (04:47→20:35)
[2022-01-12] MEDS: Insulin LISPRO 300 UNITS/3 ML VIAL SUBQ SCH ×4 (07:53→20:34)
[2022-01-12 08:17] LABS: Calcium 8.5 mg/dL (8.6-10.3); Potassium 4.2 mEq/L (3.5-5.1)
[2022-01-12] MEDS: amLODIPine 5 MG TABLET PO SCH (08:39)
[2022-01-12] MEDS: hydrALAZINE 25 MG TABLET PO SCH ×2 (08:39→16:47)
[2022-01-12] MEDS: Gabapentin 300 MG CAPSULE PO SCH ×3 (08:39→20:35)
[2022-01-12] MEDS: Loratadine 10 MG TABLET PO SCH (08:40)
[2022-01-12] MEDS: Lactobacillus 1 EACH CAP.SPRINK PO SCH ×2 (08:40→20:36)
[2022-01-12] MEDS: carvediloL 25 MG TABLET PO SCH ×2 (08:41→16:47)
[2022-01-12] MEDS: Cholecalciferol (D-3) 1,000 UNIT (25MCG) TABLET PO SCH (08:41)
[2022-01-12] MEDS: Ertapenem 1,000 MG in 0.9 % Sodium Chloride Mini Bag 100 ML IVPB SCH (08:41)
[2022-01-12] MEDS: calcitrioL 0.25 MCG CAPSULE PO SCH (08:43)
[2022-01-12] MEDS: Fluticasone Propionate Nasal 50 MCG/SPRAY BOTTLE NS SCH (08:51)
[2022-01-12] MEDS: Tiotropium 10 INH DOSE IH SCH (08:55)
[2022-01-12] MEDS: Insulin DETEMIR 100 UNIT/ML X5UNITS SUBQ SCH ×2 (12:39→20:34)
[2022-01-12] MEDS: Gentamicin Oint 15 GM TUBE TP SCH (16:49)
[2022-01-12] MEDS: Nystatin Cream 15 GM TUBE TP SCH ×2 (16:49→20:34)
[2022-01-12] MEDS: DAPTOmycin 650 MG in 0.9 % Sodium Chloride 100 ML IVPB SCH (20:33)
[2022-01-12] MEDS: *HR* HYDROcodone/Acet 5/325 mg TABLET PO PRN (20:35)
[2022-01-12] MEDS: traZODone 50 MG TABLET PO SCH (20:35)
[2022-01-13] MEDS: hydrALAZINE 25 MG TABLET PO SCH ×3 (00:17→18:03)
[2022-01-13] MEDS: *HR* Heparin 5,000 UNIT/ML VIAL SQ SCH ×3 (05:15→21:50)
[2022-01-13] MEDS: Insulin LISPRO 300 UNITS/3 ML VIAL SUBQ SCH ×4 (07:43→21:53)
[2022-01-13] MEDS: Ertapenem 1,000 MG in 0.9 % Sodium Chloride Mini Bag 100 ML IVPB SCH (08:09)
[2022-01-13] MEDS: calcitrioL 0.25 MCG CAPSULE PO SCH (08:14)
[2022-01-13] MEDS: Lactobacillus 1 EACH CAP.SPRINK PO SCH ×2 (08:14→21:51)
[2022-01-13] MEDS: Loratadine 10 MG TABLET PO SCH (08:14)
[2022-01-13] MEDS: Cholecalciferol (D-3) 1,000 UNIT (25MCG) TABLET PO SCH (08:14)
[2022-01-13] MEDS: carvediloL 25 MG TABLET PO SCH ×2 (08:14→18:03)
[2022-01-13] MEDS: Gabapentin 300 MG CAPSULE PO SCH ×3 (08:14→21:51)
[2022-01-13] MEDS: amLODIPine 5 MG TABLET PO SCH (08:14)
[2022-01-13] MEDS: Gentamicin Oint 15 GM TUBE TP SCH (08:15)
[2022-01-13] MEDS: Nystatin Cream 15 GM TUBE TP SCH ×2 (08:15→21:55)
[2022-01-13] MEDS: Fluticasone Propionate Nasal 50 MCG/SPRAY BOTTLE NS SCH (08:15)
[2022-01-13] MEDS: Tiotropium 10 INH DOSE IH SCH (09:10)
[2022-01-13] MEDS: Insulin DETEMIR 100 UNIT/ML X5UNITS SUBQ SCH ×2 (09:43→21:51)
[2022-01-13] MEDS: DAPTOmycin 650 MG in 0.9 % Sodium Chloride 100 ML IVPB SCH (21:50)
[2022-01-13] MEDS: traZODone 50 MG TABLET PO SCH (21:51)
[2022-01-14] MEDS: hydrALAZINE 25 MG TABLET PO SCH ×4 (00:43→23:51)
[2022-01-14] MEDS: *HR* Heparin 5,000 UNIT/ML VIAL SQ SCH ×3 (05:09→23:52)
[2022-01-14] MEDS: Insulin LISPRO 300 UNITS/3 ML VIAL SUBQ SCH ×4 (08:11→20:59)
[2022-01-14 08:14] LABS: Calcium 8.6 mg/dL (8.6-10.3); Magnesium 1.8 mg/dL (1.6-2.6); Potassium 4.3 mEq/L (3.5-5.1)
[2022-01-14] MEDS: Ertapenem 1,000 MG in 0.9 % Sodium Chloride Mini Bag 100 ML IVPB SCH (08:33)
[2022-01-14] MEDS: lisinopriL 20 MG TABLET PO SCH (08:33)
[2022-01-14] MEDS: Gabapentin 300 MG CAPSULE PO SCH ×3 (08:33→20:58)
[2022-01-14] MEDS: Loratadine 10 MG TABLET PO SCH (08:33)
[2022-01-14] MEDS: calcitrioL 0.25 MCG CAPSULE PO SCH (08:33)
[2022-01-14] MEDS: carvediloL 25 MG TABLET PO SCH ×2 (08:33→16:42)
[2022-01-14] MEDS: amLODIPine 5 MG TABLET PO SCH (08:34)
[2022-01-14] MEDS: Cholecalciferol (D-3) 1,000 UNIT (25MCG) TABLET PO SCH (08:34)
[2022-01-14] MEDS: Gentamicin Oint 15 GM TUBE TP SCH (08:34)
[2022-01-14] MEDS: Fluticasone Propionate Nasal 50 MCG/SPRAY BOTTLE NS SCH (08:34)
[2022-01-14] MEDS: Nystatin Cream 15 GM TUBE TP SCH ×2 (08:34→21:00)
[2022-01-14] MEDS: Lactobacillus 1 EACH CAP.SPRINK PO SCH ×2 (08:34→20:58)
[2022-01-14] MEDS: Insulin DETEMIR 100 UNIT/ML X5UNITS SUBQ SCH ×2 (08:50→20:58)
[2022-01-14] MEDS: Tiotropium 10 INH DOSE IH SCH (08:56)
[2022-01-14] MEDS: DAPTOmycin 650 MG in 0.9 % Sodium Chloride 100 ML IVPB SCH (20:57)
[2022-01-14] MEDS: traZODone 50 MG TABLET PO SCH (20:58)
[2022-01-15] MEDS: *HR* Heparin 5,000 UNIT/ML VIAL SQ SCH ×3 (06:50→20:45)
[2022-01-15] MEDS: Insulin LISPRO 300 UNITS/3 ML VIAL SUBQ SCH ×4 (07:34→20:56)
[2022-01-15] MEDS: Tiotropium 10 INH DOSE IH SCH (07:48)
[2022-01-15] MEDS: carvediloL 25 MG TABLET PO SCH ×2 (08:40→18:48)
[2022-01-15] MEDS: Gabapentin 300 MG CAPSULE PO SCH ×3 (08:40→20:46)
[2022-01-15] MEDS: Cholecalciferol (D-3) 1,000 UNIT (25MCG) TABLET PO SCH (08:40)
[2022-01-15] MEDS: calcitrioL 0.25 MCG CAPSULE PO SCH (08:40)
[2022-01-15] MEDS: Lactobacillus 1 EACH CAP.SPRINK PO SCH ×2 (08:40→20:46)
[2022-01-15] MEDS: hydrALAZINE 25 MG TABLET PO SCH ×2 (08:40→15:36)
[2022-01-15] MEDS: lisinopriL 20 MG TABLET PO SCH (08:40)
[2022-01-15] MEDS: Gentamicin Oint 15 GM TUBE TP SCH (08:41)
[2022-01-15] MEDS: amLODIPine 5 MG TABLET PO SCH (08:41)
[2022-01-15] MEDS: Ertapenem 1,000 MG in 0.9 % Sodium Chloride Mini Bag 100 ML IVPB SCH (08:41)
[2022-01-15] MEDS: Loratadine 10 MG TABLET PO SCH (08:41)
[2022-01-15] MEDS: Nystatin Cream 15 GM TUBE TP SCH ×2 (08:41→20:47)
[2022-01-15] MEDS: Furosemide 20 MG TABLET PO SCH (08:58)
[2022-01-15] MEDS: Fluticasone Propionate Nasal 50 MCG/SPRAY BOTTLE NS SCH (08:58)
[2022-01-15] MEDS: Insulin DETEMIR 100 UNIT/ML X5UNITS SUBQ SCH ×2 (08:58→20:56)
[2022-01-15] MEDS: traZODone 50 MG TABLET PO SCH (20:46)
[2022-01-15] MEDS: DAPTOmycin 650 MG in 0.9 % Sodium Chloride 100 ML IVPB SCH (20:48)
[2022-01-16] MEDS: hydrALAZINE 25 MG TABLET PO SCH ×4 (00:59→23:39)
[2022-01-16] MEDS: *HR* Heparin 5,000 UNIT/ML VIAL SQ SCH ×3 (05:13→23:17)
[2022-01-16] MEDS: Insulin LISPRO 300 UNITS/3 ML VIAL SUBQ SCH ×4 (07:43→21:03)
[2022-01-16] MEDS: lisinopriL 20 MG TABLET PO SCH (08:16)
[2022-01-16] MEDS: Lactobacillus 1 EACH CAP.SPRINK PO SCH ×2 (08:16→21:02)
[2022-01-16] MEDS: Loratadine 10 MG TABLET PO SCH (08:16)
[2022-01-16] MEDS: carvediloL 25 MG TABLET PO SCH ×2 (08:16→16:50)
[2022-01-16] MEDS: Cholecalciferol (D-3) 1,000 UNIT (25MCG) TABLET PO SCH (08:16)
[2022-01-16] MEDS: Gabapentin 300 MG CAPSULE PO SCH ×3 (08:16→21:02)
[2022-01-16] MEDS: calcitrioL 0.25 MCG CAPSULE PO SCH (08:16)
[2022-01-16] MEDS: Ertapenem 1,000 MG in 0.9 % Sodium Chloride Mini Bag 100 ML IVPB SCH (08:16)
[2022-01-16] MEDS: amLODIPine 5 MG TABLET PO SCH (08:16)
[2022-01-16] MEDS: Gentamicin Oint 15 GM TUBE TP SCH (08:17)
[2022-01-16] MEDS: Nystatin Cream 15 GM TUBE TP SCH ×2 (08:17→21:04)
[2022-01-16] MEDS: Fluticasone Propionate Nasal 50 MCG/SPRAY BOTTLE NS SCH (08:18)
[2022-01-16] MEDS: Insulin DETEMIR 100 UNIT/ML X5UNITS SUBQ SCH ×2 (08:42→21:02)
[2022-01-16] MEDS: Tiotropium 10 INH DOSE IH SCH (09:13)
[2022-01-16] MEDS: traZODone 50 MG TABLET PO SCH (21:02)
[2022-01-16] MEDS: DAPTOmycin 650 MG in 0.9 % Sodium Chloride 100 ML IVPB SCH (21:03)
[2022-01-17] MEDS: *HR* Heparin 5,000 UNIT/ML VIAL SQ SCH ×3 (06:26→21:51)
[2022-01-17 07:37] LABS: Basophils % 0.6 %; Eosinophils # 0.1 K/mcL (0.0-0.6); Eosinophils % 1.7 %; Hematocrit 30.9 % (37.5-50.1); Hemoglobin 10.1 g/dL (12.9-16.9); Immature Granulocytes % 0.6 % (0-4); Lymphocytes # 1.3 K/mcL (0.6-4.6); Lymphocytes % 24.8 %; Mean Corpuscular HGB Conc 32.7 g/dL (31.6-35.5); Mean Corpuscular Hemoglobin 31.2 pg (28.0-33.3); Mean Corpuscular Volume 95.4 fL (83.0-100.0); Mean Platelet Volume 9.4 fL (9.4-12.4); Monocytes # 0.6 K/mcL (0.0-1.3); Monocytes % 10.8 %; Neutrophils # 3.3 K/mcL (1.6-8.9); Platelet Count 211 K/mcL (140-400); Red Blood Count 3.24 M/mcL (4.19-5.50); Red Cell Distribution Width 13.7 % (11.5-14.5); Segmented Neutrophils % 61.5 %; White Blood Count 5.4 K/mcL (4.3-11.1)
[2022-01-17 07:57] LABS: Calcium 8.7 mg/dL (8.6-10.3); Magnesium 1.8 mg/dL (1.6-2.6); Potassium 4.6 mEq/L (3.5-5.1)
[2022-01-17] MEDS: Insulin LISPRO 300 UNITS/3 ML VIAL SUBQ SCH ×4 (08:01→19:46)
[2022-01-17] MEDS: hydrALAZINE 25 MG TABLET PO SCH ×2 (08:02→17:37)
[2022-01-17] MEDS: Ertapenem 1,000 MG in 0.9 % Sodium Chloride Mini Bag 100 ML IVPB SCH (08:02)
[2022-01-17] MEDS: Gabapentin 300 MG CAPSULE PO SCH ×3 (08:02→19:45)
[2022-01-17] MEDS: Cholecalciferol (D-3) 1,000 UNIT (25MCG) TABLET PO SCH (08:03)
[2022-01-17] MEDS: Loratadine 10 MG TABLET PO SCH (08:03)
[2022-01-17] MEDS: carvediloL 25 MG TABLET PO SCH ×2 (08:03→17:37)
[2022-01-17] MEDS: Nystatin Cream 15 GM TUBE TP SCH ×2 (08:03→20:09)
[2022-01-17] MEDS: lisinopriL 20 MG TABLET PO SCH (08:03)
[2022-01-17] MEDS: calcitrioL 0.25 MCG CAPSULE PO SCH (08:03)
[2022-01-17] MEDS: Fluticasone Propionate Nasal 50 MCG/SPRAY BOTTLE NS SCH (08:03)
[2022-01-17] MEDS: Lactobacillus 1 EACH CAP.SPRINK PO SCH ×2 (08:03→19:45)
[2022-01-17] MEDS: amLODIPine 5 MG TABLET PO SCH (08:03)
[2022-01-17] MEDS: Gentamicin Oint 15 GM TUBE TP SCH (08:04)
[2022-01-17] MEDS: Tiotropium 10 INH DOSE IH SCH (08:30)
[2022-01-17] MEDS: Insulin DETEMIR 100 UNIT/ML X5UNITS SUBQ SCH ×2 (08:57→19:46)
[2022-01-17] MEDS: DAPTOmycin 650 MG in 0.9 % Sodium Chloride 100 ML IVPB SCH (19:44)
[2022-01-17] MEDS: traZODone 50 MG TABLET PO SCH (19:45)
[2022-01-18] MEDS: hydrALAZINE 25 MG TABLET PO SCH ×3 (00:01→16:53)
[2022-01-18] MEDS: *HR* Heparin 5,000 UNIT/ML VIAL SQ SCH ×3 (05:16→21:28)
[2022-01-18] MEDS: lisinopriL 20 MG TABLET PO SCH (07:55)
[2022-01-18] MEDS: Lactobacillus 1 EACH CAP.SPRINK PO SCH ×2 (07:55→20:09)
[2022-01-18] MEDS: carvediloL 25 MG TABLET PO SCH ×2 (07:55→16:53)
[2022-01-18] MEDS: Loratadine 10 MG TABLET PO SCH (07:55)
[2022-01-18] MEDS: amLODIPine 5 MG TABLET PO SCH (07:55)
[2022-01-18] MEDS: calcitrioL 0.25 MCG CAPSULE PO SCH (07:55)
[2022-01-18] MEDS: Gabapentin 300 MG CAPSULE PO SCH ×3 (07:55→20:09)
[2022-01-18] MEDS: Ertapenem 1,000 MG in 0.9 % Sodium Chloride Mini Bag 100 ML IVPB SCH (07:56)
[2022-01-18] MEDS: Tiotropium 10 INH DOSE IH SCH (08:01)
[2022-01-18] MEDS: Insulin LISPRO 300 UNITS/3 ML VIAL SUBQ SCH ×4 (08:01→20:14)
[2022-01-18] MEDS: Cholecalciferol (D-3) 1,000 UNIT (25MCG) TABLET PO SCH (08:03)
[2022-01-18] MEDS: Fluticasone Propionate Nasal 50 MCG/SPRAY BOTTLE NS SCH (08:04)
[2022-01-18] MEDS: Furosemide 20 MG TABLET PO SCH (08:08)
[2022-01-18] MEDS: Nystatin Cream 15 GM TUBE TP SCH ×2 (08:10→20:21)
[2022-01-18] MEDS: Gentamicin Oint 15 GM TUBE TP SCH (08:10)
[2022-01-18 08:58] LABS: Hematocrit 33.1 % (37.5-50.1); Hemoglobin 10.8 g/dL (12.9-16.9); Mean Corpuscular HGB Conc 32.6 g/dL (31.6-35.5); Mean Corpuscular Hemoglobin 31.1 pg (28.0-33.3); Mean Corpuscular Volume 95.4 fL (83.0-100.0); Mean Platelet Volume 9.6 fL (9.4-12.4); Platelet Count 234 K/mcL (140-400); Red Blood Count 3.47 M/mcL (4.19-5.50); Red Cell Distribution Width 13.6 % (11.5-14.5); White Blood Count 6.1 K/mcL (4.3-11.1)
[2022-01-18 09:12] LABS: BUN/Creatinine Ratio 17 (6-26); Blood Urea Nitrogen 39 mg/dL (8-23); Creatine Kinase 45 Units/L (30-223)
[2022-01-18] MEDS: Insulin DETEMIR 100 UNIT/ML X5UNITS SUBQ SCH ×2 (09:47→20:10)
[2022-01-18] MEDS ORDERED: Ringers Solution, Lactated 1,000 ML IVC SCH (13:00)
[2022-01-18 13:02] LABS: C-Reactive Protein 16 mg/L (Less than 10)
[2022-01-18] MEDS: traZODone 50 MG TABLET PO SCH (20:09)
[2022-01-18] MEDS: DAPTOmycin 650 MG in 0.9 % Sodium Chloride 100 ML IVPB SCH (20:13)
[2022-01-19] MEDS: hydrALAZINE 25 MG TABLET PO SCH ×3 (00:45→16:49)
[2022-01-19] MEDS: *HR* Heparin 5,000 UNIT/ML VIAL SQ SCH ×2 (05:36→16:49)
[2022-01-19 07:31] LABS: Calcium 8.9 mg/dL (8.6-10.3); Potassium 4.5 mEq/L (3.5-5.1)
[2022-01-19] MEDS: Insulin LISPRO 300 UNITS/3 ML VIAL SUBQ SCH ×4 (08:30→21:03)
[2022-01-19] MEDS: Ertapenem 1,000 MG in 0.9 % Sodium Chloride Mini Bag 100 ML IVPB SCH (08:32)
[2022-01-19] MEDS: Fluticasone Propionate Nasal 50 MCG/SPRAY BOTTLE NS SCH (08:32)
[2022-01-19] MEDS: Loratadine 10 MG TABLET PO SCH (08:33)
[2022-01-19] MEDS: Gabapentin 300 MG CAPSULE PO SCH ×3 (08:33→21:03)
[2022-01-19] MEDS: carvediloL 25 MG TABLET PO SCH ×2 (08:33→16:49)
[2022-01-19] MEDS: Cholecalciferol (D-3) 1,000 UNIT (25MCG) TABLET PO SCH (08:33)
[2022-01-19] MEDS: amLODIPine 5 MG TABLET PO SCH (08:33)
[2022-01-19] MEDS: Lactobacillus 1 EACH CAP.SPRINK PO SCH ×2 (08:33→21:03)
[2022-01-19] MEDS: calcitrioL 0.25 MCG CAPSULE PO SCH (08:33)
[2022-01-19] MEDS: Nystatin Cream 15 GM TUBE TP SCH ×2 (08:34→21:05)
[2022-01-19] MEDS: Gentamicin Oint 15 GM TUBE TP SCH (08:35)
[2022-01-19] MEDS: Tiotropium 10 INH DOSE IH SCH (08:45)
[2022-01-19] MEDS: Insulin DETEMIR 100 UNIT/ML X5UNITS SUBQ SCH ×2 (09:24→21:03)
[2022-01-19] MEDS: traZODone 50 MG TABLET PO SCH (21:03)
[2022-01-20] MEDS: *HR* Heparin 5,000 UNIT/ML VIAL SQ SCH ×4 (00:14→20:08)
[2022-01-20] MEDS: hydrALAZINE 25 MG TABLET PO SCH ×3 (00:14→15:57)
[2022-01-20] MEDS: Insulin LISPRO 300 UNITS/3 ML VIAL SUBQ SCH ×4 (07:33→20:07)
[2022-01-20] MEDS: carvediloL 25 MG TABLET PO SCH ×2 (08:03→15:57)
[2022-01-20] MEDS: amLODIPine 5 MG TABLET PO SCH (08:03)
[2022-01-20] MEDS: Furosemide 20 MG TABLET PO SCH (08:03)
[2022-01-20] MEDS: Gentamicin Oint 15 GM TUBE TP SCH (08:04)
[2022-01-20] MEDS: Loratadine 10 MG TABLET PO SCH (08:04)
[2022-01-20] MEDS: Gabapentin 300 MG CAPSULE PO SCH ×3 (08:04→20:09)
[2022-01-20] MEDS: lisinopriL 20 MG TABLET PO SCH (08:04)
[2022-01-20] MEDS: Cholecalciferol (D-3) 1,000 UNIT (25MCG) TABLET PO SCH (08:04)
[2022-01-20] MEDS: Fluticasone Propionate Nasal 50 MCG/SPRAY BOTTLE NS SCH (08:04)
[2022-01-20] MEDS: Lactobacillus 1 EACH CAP.SPRINK PO SCH ×2 (08:04→20:08)
[2022-01-20] MEDS: calcitrioL 0.25 MCG CAPSULE PO SCH (08:04)
[2022-01-20] MEDS: Nystatin Cream 15 GM TUBE TP SCH ×2 (08:05→20:10)
[2022-01-20] MEDS: Tiotropium 10 INH DOSE IH SCH (08:45)
[2022-01-20] MEDS: Insulin DETEMIR 100 UNIT/ML X5UNITS SUBQ SCH ×2 (09:12→20:06)
[2022-01-20] MEDS: DAPTOmycin 650 MG in 0.9 % Sodium Chloride 100 ML IVPB SCH (20:06)
[2022-01-20] MEDS: traZODone 50 MG TABLET PO SCH (20:08)
[2022-01-21] MEDS: hydrALAZINE 25 MG TABLET PO SCH ×4 (00:27→23:34)
[2022-01-21] MEDS: *HR* Heparin 5,000 UNIT/ML VIAL SQ SCH ×3 (05:00→23:26)
[2022-01-21] MEDS: Insulin LISPRO 300 UNITS/3 ML VIAL SUBQ SCH ×4 (07:40→20:05)
[2022-01-21] MEDS: Tiotropium 10 INH DOSE IH SCH (08:47)
[2022-01-21] MEDS: Fluticasone Propionate Nasal 50 MCG/SPRAY BOTTLE NS SCH (09:21)
[2022-01-21] MEDS: Loratadine 10 MG TABLET PO SCH (09:22)
[2022-01-21] MEDS: calcitrioL 0.25 MCG CAPSULE PO SCH (09:22)
[2022-01-21] MEDS: amLODIPine 5 MG TABLET PO SCH (09:22)
[2022-01-21] MEDS: carvediloL 25 MG TABLET PO SCH ×2 (09:22→16:44)
[2022-01-21] MEDS: lisinopriL 20 MG TABLET PO SCH (09:22)
[2022-01-21] MEDS: Gabapentin 300 MG CAPSULE PO SCH ×3 (09:22→20:04)
[2022-01-21] MEDS: Cholecalciferol (D-3) 1,000 UNIT (25MCG) TABLET PO SCH (09:23)
[2022-01-21] MEDS: Lactobacillus 1 EACH CAP.SPRINK PO SCH ×2 (09:23→20:04)
[2022-01-21] MEDS: Insulin DETEMIR 100 UNIT/ML X5UNITS SUBQ SCH ×2 (10:15→20:04)
[2022-01-21] MEDS: Nystatin Cream 15 GM TUBE TP SCH ×2 (14:51→20:05)
[2022-01-21] MEDS: Gentamicin Oint 15 GM TUBE TP SCH (14:52)
[2022-01-21] MEDS: traZODone 50 MG TABLET PO SCH (20:04)
[2022-01-22] MEDS: *HR* Heparin 5,000 UNIT/ML VIAL SQ SCH ×3 (05:36→23:10)
[2022-01-22] MEDS: Lactobacillus 1 EACH CAP.SPRINK PO SCH ×2 (08:01→19:12)
[2022-01-22] MEDS: Cholecalciferol (D-3) 1,000 UNIT (25MCG) TABLET PO SCH (08:01)
[2022-01-22] MEDS: amLODIPine 5 MG TABLET PO SCH (08:01)
[2022-01-22] MEDS: hydrALAZINE 25 MG TABLET PO SCH ×2 (08:02→19:12)
[2022-01-22] MEDS: Gentamicin Oint 15 GM TUBE TP SCH (08:02)
[2022-01-22] MEDS: Gabapentin 300 MG CAPSULE PO SCH ×3 (08:02→19:12)
[2022-01-22] MEDS: Loratadine 10 MG TABLET PO SCH (08:02)
[2022-01-22] MEDS: calcitrioL 0.25 MCG CAPSULE PO SCH (08:02)
[2022-01-22] MEDS: carvediloL 25 MG TABLET PO SCH ×2 (08:02→19:12)
[2022-01-22] MEDS: lisinopriL 20 MG TABLET PO SCH (08:02)
[2022-01-22] MEDS: Fluticasone Propionate Nasal 50 MCG/SPRAY BOTTLE NS SCH (08:03)
[2022-01-22] MEDS: Nystatin Cream 15 GM TUBE TP SCH ×2 (08:03→19:19)
[2022-01-22] MEDS: Insulin LISPRO 300 UNITS/3 ML VIAL SUBQ SCH ×4 (08:03→19:17)
[2022-01-22] MEDS: Furosemide 20 MG TABLET PO SCH (08:09)
[2022-01-22] MEDS: Insulin DETEMIR 100 UNIT/ML X5UNITS SUBQ SCH ×2 (08:18→19:16)
[2022-01-22] MEDS: Tiotropium 10 INH DOSE IH SCH (09:01)
[2022-01-22] MEDS: DAPTOmycin 650 MG in 0.9 % Sodium Chloride 100 ML IVPB SCH (19:17)
[2022-01-22] MEDS: traZODone 50 MG TABLET PO SCH (20:13)
[2022-01-23] MEDS: hydrALAZINE 25 MG TABLET PO SCH ×3 (06:06→16:00)
[2022-01-23 06:38] VITALS: BP 146/60; PULSE 73; TEMP 97.5; O2SAT 93
[2022-01-23] MEDS: Insulin LISPRO 300 UNITS/3 ML VIAL SUBQ SCH ×3 (07:20→16:44)
[2022-01-23] MEDS: Tiotropium 10 INH DOSE IH SCH (07:49)
[2022-01-23 07:51] VITALS: RESP 18
[2022-01-23] MEDS: Gabapentin 300 MG CAPSULE PO SCH ×2 (08:10→15:39)
[2022-01-23] MEDS: calcitrioL 0.25 MCG CAPSULE PO SCH (08:10)
[2022-01-23] MEDS: Lactobacillus 1 EACH CAP.SPRINK PO SCH (08:10)
[2022-01-23] MEDS: Insulin DETEMIR 100 UNIT/ML X5UNITS SUBQ SCH (08:10)
[2022-01-23] MEDS: Cholecalciferol (D-3) 1,000 UNIT (25MCG) TABLET PO SCH (08:10)
[2022-01-23] MEDS: *HR* Heparin 5,000 UNIT/ML VIAL SQ SCH ×2 (08:10→15:39)
[2022-01-23] MEDS: Gentamicin Oint 15 GM TUBE TP SCH (08:11)
[2022-01-23] MEDS: Loratadine 10 MG TABLET PO SCH (08:11)
[2022-01-23] MEDS: lisinopriL 20 MG TABLET PO SCH (08:11)
[2022-01-23] MEDS: carvediloL 25 MG TABLET PO SCH ×2 (08:11→17:32)
[2022-01-23] MEDS: Nystatin Cream 15 GM TUBE TP SCH (08:11)
[2022-01-23] MEDS: Fluticasone Propionate Nasal 50 MCG/SPRAY BOTTLE NS SCH (08:11)
[2022-01-23] MEDS: amLODIPine 5 MG TABLET PO SCH (08:11)
== END 2022-01-23 17:35 | disposition home health service (06) | DRG 177 ==
LOC: SUATTDRO 16:00 → INPPIK 16:00
PROVIDERS: ADMIT Family Medicine; ATTEND Nurse Practitioner